=== PATIENT | female | born 1955 | race African-American/Black ===

== ENCOUNTER 2018-03-09 05:52 | Inpatient (IN) ==
[2018-03-09] MEDS ORDERED: VANCOMYCIN INJ 1,000 MG in SODIUM CHLORIDE 0.9% 250 ML IV ONE (06:00)
[2018-03-09] MEDS ORDERED: ceFAZolin 2,000 MG in PREMIX 1 EACH IV ONE (06:00)
[2018-03-09] MEDS ORDERED: TRANEXAMIC ACID 1,000 MG/10 ML VIAL ONE (06:16)
[2018-03-09] MEDS ORDERED: BUPIVACAINE SPINAL 0.75% 2 ML AMP SPINAL ONE (06:18)
[2018-03-09] MEDS ORDERED: ROPIVACAINE 0.5% 30 ML VIAL ONE (06:29)
[2018-03-09] MEDS ORDERED: LACTATED RINGERS 1,000 ML IV SCH (06:30)
[2018-03-09] MEDS ORDERED: VANCOMYCIN 1,000 MG VIAL ONE (06:36)
[2018-03-09] MEDS ORDERED: MAGNESIUM HYDROXIDE SUSP 30 ML UDCUP PO PRN (07:22)
[2018-03-09] MEDS ORDERED: MORPHINE 4 MG/1 ML VIAL IV PRN (07:22)
[2018-03-09] MEDS ORDERED: ZALEPLON 5 MG CAPSULE PO PRN (07:22)
[2018-03-09] MEDS ORDERED: oxyCODONE IR 5 MG TABLET PO PRN ×2 (07:22)
[2018-03-09] MEDS ORDERED: diphenhydrAMINE CAP 25 MG CAPSULE PO PRN (07:22)
[2018-03-09] MEDS ORDERED: DEXTROSE 50% 25 GM/50 ML VIAL IV PRN (07:24)
[2018-03-09] MEDS ORDERED: GLUCAGON 1 MG VIAL IM PRN (07:24)
[2018-03-09] MEDS ORDERED: KETOROLAC 30 MG/1 ML VIAL IV SCH (07:30)
[2018-03-09] MEDS ORDERED: BACITRACIN OINT 0.9 GM PACK TOP ONE (08:07)
[2018-03-09] MEDS: LACTATED RINGERS 1,000 ML IV SCH ×4 (08:21→23:32)
[2018-03-09] MEDS ORDERED: PROPOFOL 200 MG/20 ML VIAL IV ONE (08:47)
[2018-03-09] MEDS ORDERED: ONDANSETRON 4 MG/2 ML VIAL ONE (08:47)
[2018-03-09] MEDS ORDERED: LACTATED RINGERS 1,000 ML IV ONE (08:47)
[2018-03-09] MEDS ORDERED: fentaNYL 100 MCG/2 ML VIAL ONE (08:47)
[2018-03-09] MEDS ORDERED: MIDAZOLAM 2 MG/2 ML VIAL ONE (08:47)
[2018-03-09] MEDS ORDERED: SODIUM CHLORIDE 0.9% 200 ML IV ONE (08:47)
[2018-03-09] MEDS: DOCUSATE SODIUM 100 MG CAPSULE PO SCH ×2 (09:59→21:19)
[2018-03-09] MEDS: INSULIN LISPRO 100 UNIT/ML SUBCUT SCH ×4 (09:59→21:19)
[2018-03-09] MEDS: POTASSIUM GLUCONATE 500 MG TABLET PO SCH (10:00)
[2018-03-09] MEDS: GABAPENTIN 300 MG CAPSULE PO SCH ×3 (10:00→21:19)
[2018-03-09] MEDS: MAGNESIUM GLUCONATE 500 MG TABLET PO SCH (10:00)
[2018-03-09] MEDS: LOSARTAN/HCTZ 50-12.5 MG TABLET PO SCH (10:00)
[2018-03-09] MEDS: CYANOCOBALAMIN 500 MCG TABLET PO SCH (10:00)
[2018-03-09] MEDS: ONDANSETRON 4 MG/2 ML VIAL IV PRN ×3 (10:23→23:21)
[2018-03-09] MEDS: ceFAZolin 2,000 MG in PREMIX 1 EACH IV SCH ×2 (11:18→18:48)
[2018-03-09] MEDS: ACETAMINOPHEN 500 MG TABLET PO SCH ×3 (11:19→23:29)
[2018-03-09] MEDS: KETOROLAC 30 MG/1 ML VIAL IV SCH ×3 (11:21→23:30)
[2018-03-09] MEDS: GLIMEPIRIDE 2 MG TABLET PO SCH (17:00)
[2018-03-09] MEDS: FONDAPARINUX 2.5 MG/0.5 ML SYRINGE SUBCUT SCH (21:19)
[2018-03-09] MEDS: INSULIN NPH/REGULAR 70/30 100 UNIT/ML SUBCUT SCH (21:19)
[2018-03-09] MEDS: MORPHINE 4 MG/1 ML VIAL IV PRN (23:23)
[2018-03-10] MEDS: ACETAMINOPHEN 500 MG TABLET PO SCH (05:23)
[2018-03-10] MEDS: KETOROLAC 30 MG/1 ML VIAL IV SCH (05:23)
[2018-03-10 06:29] LABS: Basophils % 0.3 % (0.0-0.8); Eosinophils # 0.1 10*3/uL (0.0-0.87); Eosinophils % 1.4 % (0.00-10.9); Hematocrit 34.2 VOL% (35.7-47.0); Hemoglobin 11.2 GM/DL (12.0-16.0); Immature Granulocytes % 0.5 %; Immature Granulocytes Absolute 0.05 #; Lymphocytes # 1.1 10*3/uL (1.4-4.0); Lymphocytes % 11.2 % (21.3-54.2); Mean Corpuscular HGB Conc 32.7 GM/DL (32-36); Mean Corpuscular Hemoglobin 30 PG (27-34); Mean Platelet Volume 10.4 FL (9.6-12.0); Monocytes # 0.9 10*3/uL (0.11-0.8); Monocytes % 8.9 % (1.7-12.7); Neutrophils # 7.8 10*3/uL (1.4-7.4); Neutrophils % 77.7 % (38.7-73.9); Platelet Count 208 T/CUMM (130-400); Red Blood Count 3.76 MC/CUMM (3.8-5.5); Red Cell Distribution Width 12.5 % (9.3-17.3)
[2018-03-10] MEDS: ONDANSETRON 4 MG/2 ML VIAL IV PRN ×2 (06:41→09:35)
[2018-03-10 06:53] LABS: Calcium 8.3 MG/DL (8.5-10.1); Osmolality,Calculated 284.7 MOS/KG (273-304); Potassium 4.5 MMOL/L (3.5-5.1)
[2018-03-10] MEDS ORDERED: INSULIN NPH/REGULAR 70/30 100 UNIT/ML SUBCUT SCH (09:00)
[2018-03-10] MEDS ORDERED: ONDANSETRON 4 MG/2 ML VIAL IV PRN (10:12)
[2018-03-10] MEDS: INSULIN LISPRO 100 UNIT/ML SUBCUT SCH ×4 (10:17→21:35)
[2018-03-10] MEDS: INSULIN NPH/REGULAR 70/30 100 UNIT/ML SUBCUT SCH (10:17)
[2018-03-10] MEDS: LOSARTAN/HCTZ 50-12.5 MG TABLET PO SCH (10:21)
[2018-03-10] MEDS ORDERED: DEXTROSE 5% 1,000 ML IV SCH (10:30)
[2018-03-10] MEDS: DEXTROSE 5% NACL 0.9% 1,000 ML IV SCH (10:32)
[2018-03-10] MEDS ORDERED: PROMETHAZINE 25 MG/1 ML VIAL ONE (10:38)
[2018-03-10] MEDS: PROMETHAZINE 25 MG/1 ML VIAL IM PRN (10:40)
[2018-03-10] MEDS: POTASSIUM GLUCONATE 500 MG TABLET PO SCH (10:46)
[2018-03-10] MEDS: DOCUSATE SODIUM 100 MG CAPSULE PO SCH ×2 (10:46→21:34)
[2018-03-10] MEDS: GLIMEPIRIDE 2 MG TABLET PO SCH ×2 (10:46→16:11)
[2018-03-10] MEDS: CYANOCOBALAMIN 500 MCG TABLET PO SCH (10:46)
[2018-03-10] MEDS: MAGNESIUM GLUCONATE 500 MG TABLET PO SCH (10:46)
[2018-03-10] MEDS: GABAPENTIN 300 MG CAPSULE PO SCH ×3 (10:46→21:34)
[2018-03-10] MEDS ORDERED: CELECOXIB 200 MG CAPSULE PO SCH (13:23)
[2018-03-10] MEDS ORDERED: DEXTROSE 50% 25 GM/50 ML VIAL IV PRN (17:24)
[2018-03-10] MEDS ORDERED: GLUCAGON 1 MG VIAL IM PRN (17:24)
[2018-03-10] MEDS: FONDAPARINUX 2.5 MG/0.5 ML SYRINGE SUBCUT SCH (21:34)
[2018-03-10] MEDS: MORPHINE 4 MG/1 ML VIAL IV PRN (21:47)
[2018-03-11] MEDS: DEXTROSE 5% NACL 0.9% 1,000 ML IV SCH ×2 (03:10→20:43)
[2018-03-11 04:00] LABS: Basophils % 0.4 % (0.0-0.8); Eosinophils # 0.3 10*3/uL (0.0-0.87); Eosinophils % 2.8 % (0.00-10.9); Hematocrit 31.5 VOL% (35.7-47.0); Hemoglobin 10.5 GM/DL (12.0-16.0); Immature Granulocytes % 0.4 %; Immature Granulocytes Absolute 0.04 #; Lymphocytes # 2.3 10*3/uL (1.4-4.0); Lymphocytes % 23.5 % (21.3-54.2); Mean Corpuscular HGB Conc 33.3 GM/DL (32-36); Mean Corpuscular Hemoglobin 30 PG (27-34); Mean Corpuscular Volume 91.3 FL (87-102); Mean Platelet Volume 10.4 FL (9.6-12.0); Monocytes # 0.8 10*3/uL (0.11-0.8); Monocytes % 7.9 % (1.7-12.7); Neutrophils # 6.2 10*3/uL (1.4-7.4); Platelet Count 176 T/CUMM (130-400); Red Blood Count 3.45 MC/CUMM (3.8-5.5); Red Cell Distribution Width 12.6 % (9.3-17.3); White Blood Count 9.6 T/CUMM (4-12)
[2018-03-11 04:37] LABS: Albumin 2.4 G/DL (3.4-5.0); Bilirubin,Total 1.2 MG/DL (0.2-1.0); Calcium 7.7 MG/DL (8.5-10.1); Osmolality,Calculated 281.7 MOS/KG (273-304); Potassium 3.9 MMOL/L (3.5-5.1); Total Protein 6.1 G/DL (6.4-8.3)
[2018-03-11] MEDS: hydroCHLOROthiazide 12.5 MG CAPSULE PO SCH (08:57)
[2018-03-11] MEDS: DOCUSATE SODIUM 100 MG CAPSULE PO SCH ×2 (08:57→20:43)
[2018-03-11] MEDS: POTASSIUM GLUCONATE 500 MG TABLET PO SCH (08:57)
[2018-03-11] MEDS: CYANOCOBALAMIN 500 MCG TABLET PO SCH (08:57)
[2018-03-11] MEDS: INSULIN NPH/REGULAR 70/30 100 UNIT/ML SUBCUT SCH (08:57)
[2018-03-11] MEDS: MAGNESIUM GLUCONATE 500 MG TABLET PO SCH (08:57)
[2018-03-11] MEDS: GLIMEPIRIDE 2 MG TABLET PO SCH ×2 (08:57→17:26)
[2018-03-11] MEDS: GABAPENTIN 300 MG CAPSULE PO SCH ×3 (08:57→20:43)
[2018-03-11] MEDS: INSULIN LISPRO 100 UNIT/ML SUBCUT SCH ×4 (08:57→20:43)
[2018-03-11] MEDS: FONDAPARINUX 2.5 MG/0.5 ML SYRINGE SUBCUT SCH (20:43)
[2018-03-11] MEDS: MORPHINE 4 MG/1 ML VIAL IV PRN (21:51)
[2018-03-12 05:16] LABS: Basophils # 0.1 10*3/uL (0.0-0.2); Basophils % 0.6 % (0.0-0.8); Eosinophils # 0.3 10*3/uL (0.0-0.87); Eosinophils % 3.2 % (0.00-10.9); Hematocrit 28.2 VOL% (35.7-47.0); Hemoglobin 9.4 GM/DL (12.0-16.0); Immature Granulocytes % 0.3 %; Immature Granulocytes Absolute 0.03 #; Lymphocytes # 2.7 10*3/uL (1.4-4.0); Lymphocytes % 26.5 % (21.3-54.2); Mean Corpuscular HGB Conc 33.3 GM/DL (32-36); Mean Corpuscular Hemoglobin 31 PG (27-34); Mean Corpuscular Volume 92.5 FL (87-102); Mean Platelet Volume 10.2 FL (9.6-12.0); Monocytes # 1.1 10*3/uL (0.11-0.8); Monocytes % 10.5 % (1.7-12.7); Neutrophils # 5.9 10*3/uL (1.4-7.4); Neutrophils % 58.9 % (38.7-73.9); Platelet Count 181 T/CUMM (130-400); Red Blood Count 3.05 MC/CUMM (3.8-5.5); Red Cell Distribution Width 12.4 % (9.3-17.3); White Blood Count 10.1 T/CUMM (4-12)
[2018-03-12 05:37] LABS: Calcium 7.2 MG/DL (8.5-10.1); Osmolality,Calculated 276.7 MOS/KG (273-304); Potassium 3.8 MMOL/L (3.5-5.1)
[2018-03-12] MEDS: INSULIN NPH/REGULAR 70/30 100 UNIT/ML SUBCUT SCH (09:47)
[2018-03-12] MEDS: PROMETHAZINE 25 MG/1 ML VIAL IM PRN (09:47)
[2018-03-12] MEDS ORDERED: LOSARTAN 50 MG TABLET PO ONE (09:47)
[2018-03-12] MEDS: MAGNESIUM GLUCONATE 500 MG TABLET PO SCH (09:48)
[2018-03-12] MEDS: POTASSIUM GLUCONATE 500 MG TABLET PO SCH (09:48)
[2018-03-12] MEDS: DOCUSATE SODIUM 100 MG CAPSULE PO SCH (09:48)
[2018-03-12] MEDS: GLIMEPIRIDE 2 MG TABLET PO SCH (09:48)
[2018-03-12] MEDS: CYANOCOBALAMIN 500 MCG TABLET PO SCH (09:49)
[2018-03-12] MEDS: GABAPENTIN 300 MG CAPSULE PO SCH ×2 (09:49→19:23)
[2018-03-12] MEDS: INSULIN LISPRO 100 UNIT/ML SUBCUT SCH ×2 (09:57→12:21)
[2018-03-12] MEDS: hydroCHLOROthiazide 12.5 MG CAPSULE PO SCH (11:07)
[2018-03-12] MEDS: LOSARTAN/HCTZ 50-12.5 MG TABLET PO SCH (11:18)
[2018-03-12 15:59] VITALS: BP 158/71
== END 2018-03-12 15:52 | disposition home health service (06) | DRG 470 ==
LOC: N.OR 05:52 → N.SDSINP 05:53 → N.3E 07:22 → N.OR 07:32 → N.3E 03-12 16:08
PROVIDERS: ADMIT Orthopaedic Surgery; ATTEND Orthopaedic Surgery